=== PATIENT | male | born 1950 | race Caucasian/White ===

== ENCOUNTER → 2017-09-23 | Outpatient (CLI) | payer OTHER | LOC: BHFA 09:00 | PROVIDERS: ATTEND Internal Medicine Cardiovascular Disease | DX: I10 Essential (primary) hypertension (principal); R06.02 Shortness of breath | CPT/HCPCS: 78452; 93017; A9500; J2785 ==

== ENCOUNTER 2017-10-18 08:17 | Inpatient (IN) | payer OTHER ==
--- NOTE | 2017-10-17 07:59 | GHP ---
[f rep st] PREOP HISTORY AND PHYSICAL DATE OF ADMISSION: 10/18/2017 He will be an a.m. admission for surgery on 10/18/2017. PROBLEMS: Left hip arthritis. HISTORY OF PRESENT ILLNESS: The patient is a 67-year-old man admitted for a left total hip arthropla sty. He has had quite a bit of soreness and tightness in the hip for a long time. In the last 6 mon ths, it has been very painful. He has arthritis in his right hip, but it is not particularly painful . He also has degenerative arthritis in his right knee. He has had 3 previous operations on the right knee and has been told that he needs a total knee replacement. His left hip is limiting his activities because of pain. [facility]. He has failed nonsurgical treatment. He is admitted for a left total hip arthroplasty. PAST MEDICAL HISTORY: He is treated for elevated cholesterol and hypertension. He also has glaucoma . He has had a history of kidney stones in the past. No history of heart disease, stents, DVT, hepa titis. He has sleep apnea and uses a CPAP machine. No history of bleeding problems. CURRENT MEDICATIONS: Allopurinol 100 mg per day. Fenofibrate 160 mg per day. Losartan 100 mg per d ay. Lumigan eye drops. Simvastatin. Tamsulosin. Potassium citrate extended-release tablets. He a lso uses trazodone for sleep. DRUG ALLERGIES: None. METAL ALLERGY: None. LATEX ALLERGY: None. SOCIAL HISTORY: The patient is . He does not smoke cigarettes and occasionally drinks alcoho l. 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 FAMILY HISTORY: Positive for breast cancer and depression. PHYSICAL EXAMINATION: Height 6 feet 2 inches. Weight 320 pounds. BMI 41.1. EYES: The conjunctiva e and sclerae are clear. Pupils are round and reactive. MOUTH: Good oral hygiene. No loose teeth. CHEST: Clear. HEART: Regular rhythm. No murmurs. EXTREMITIES: Pertinent findings are limited to his left hip. He has full extension and 90 degrees of flexion. External rotation 20 degrees. In ternal rotation 0 degrees. Abduction 20 degrees. IMPRESSION ON ADMISSION: 1. Bilateral hip degenerative arthritis. The left hip is symptomatic. He is prepared for a left to kendra hip arthroplasty. 2. Right knee degenerative arthritis. 3. Obesity. 4. Treatment for hypertension and elevated cholesterol. 5. Treatment for glaucoma. PLAN: He will undergo a left total hip arthroplasty. The surgery has been described to him, tatianna melo the risks, complications, expectations, and recovery time. I have discussed with him the risk of dislocation, leg length inequality, infection, and sciatic nerve injury. He understands that he is r elatively young for a total hip replacement and might need revision surgery in the future. He also u nderstands that his weight increases his risk of complications. All his questions have been answered , and he consents to surgery. IMAGING: His films show advanced degenerative arthritis of his left hip. He is bone on bone. He al so has significant degenerative arthritis in the right hip. /[id number]/MODL
[~2017-10-18 08:17] MED LIST: POVIDONE-IODINE 20 ML in SODIUM CL IRRIG SOLUTION 500 ML IRR ONE; ROPIVACAINE 0.2% 80 MG, EPINEPHrine 0.2 MG, KETOROLAC TROMETHAMINE 30 MG in SYRINGE 0 ML IU ONE; ceFAZolin 1 GM/5 ML SYR ONE
[2017-10-18] MEDS ORDERED: ACETAMINOPHEN 325 MG TAB PO ONE (08:31)
[2017-10-18] MEDS ORDERED: FAMOTIDINE 20 MG TAB PO ONE (08:31)
[2017-10-18] MEDS ORDERED: ceFAZolin 2 GM/SWFI 2 GM/20 ML SYR IVP ONE (08:31)
[2017-10-18] MEDS ORDERED: DEXAMETHASONE 4 MG/ML VIAL IVP ONE (08:31)
[2017-10-18] MEDS ORDERED: LIDOCAINE 1% 2 ML INJ ONE (08:41)
[2017-10-18] MEDS ORDERED: LR 1,000 ML IV ONE (08:57)
[2017-10-18] MEDS ORDERED: LIDOCAINE 1% 2 ML INJ ID PRN (08:57)
[2017-10-18] MEDS ORDERED: NS IV ONE (09:00)
[2017-10-18] MEDS ORDERED: ROPIVACAINE 0.2% 80 MG, EPINEPHrine 0.2 MG, KETOROLAC TROMETHAMINE 30 MG in SYRINGE 0 ML IU ONE (09:00)
[2017-10-18] MEDS ORDERED: TRANEXAMIC ACID IV ONE (09:00)
--- NOTE | 2017-10-18 09:13 | PDHPUP ---
History & Physical Update H&P update statement: This history and physical update is based on an assessment of the patient which was completed after admission or registration (within 24 hours), but prior to the surgery/procedure. H&P update: H&P reviewed & patient examined, no change in patient's condition since H&P completed
[2017-10-18] MEDS ORDERED: MIDAZOLAM 2 MG/2 ML VIAL ONE (09:31)
--- NOTE | 2017-10-18 09:31 | PDANEPAE ---
ANE History of Present Illness OA left hip ANE Past Medical History - Cardiovascular History Hx Hypertension: Yes Hx Arrhythmias: No Hx Chest Pain: No Hx Coronary Artery / Peripheral Vascular Disease: No Hx CHF / Valvular Disease: No Hx Palpitations: No - Pulmonary History Hx COPD: No Hx Asthma/Reactive Airway Disease: No Hx Recent Upper Respiratory Infection: No Hx Oxygen in Use at Home: No Hx Sleep Apnea: Yes Sleep Apnea Screening Result - Last Documented: Positive - Neurologic History Hx Cerebrovascular Accident: No Hx Seizures: No Hx Dementia: No - Endocrine History Hx Diabetes: No - Renal History Hx Renal Disorders: Yes Renal History Comment: hx of kidney stones - Liver History Hx Hepatic Disorders: No - Neurological & Psychiatric Hx Hx Neurological and Psychiatric Disorders: No - Cancer History Hx Cancer: No - Congenital Disorder History Hx Congenital Disorders: No - GI History Hx Gastrointestinal Disorders: No - Other Health History Other Health History: Glaucoma, - Chronic Pain History Chronic Pain: No - Surgical History Prior Surgeries: none ANE Review of Systems Review of Systems: - Exercise capacity METS (RN): 4 METS ANE Patient History - Allergies Allergies/Adverse Reactions: No Known Allergies Allergy (Unverified 07/21/16 07:56) - Home Medications Home medications: home medication list seen and reviewed Home Medications: Losartan Potassium [Cozaar 50 mg (*)] 100 mg PO DAILY 07/21/16 [Last Taken 10/17] Simvastatin [Zocor] 40 mg PO DAILY 07/21/16 [Last Taken 10/17/17 19:00] traZODone [traZODONE 50MG (*)] 150 mg PO HS 07/21/16 [Last Taken 10/17/17 19:00] Allopurinol [Allopurinol 100 MG (*)] 100 mg PO DAILY 09/28/17 [Last Taken ] FENOFIBRATE 160 mg PO DAILY 09/28/17 [Last Taken 10/17/17] Potassium Citrate [Urocit-K 10meq (*)] 20 meq PO DAILY 09/28/17 [Last Taken ] Tamsulosin HCl [Flomax 0.4 MG (*)] 0.4 mg PO DAILY 09/28/17 [Last Taken Unknown] - NPO status NPO Since - Liquids (Date): 10/17/17 NPO Since - Liquids (Time): 19:00 NPO Since - Solids (Date): 10/17/17 NPO Since - Solids (Time): 19:00 - Smoking Hx Smoking Status: Never smoked - Family Anes Hx Family Hx Anesthesia Complications: none ANE Labs/Vital Signs - Vital Signs Blood Pressure: 137/90 Heart Rate: 90 Respiratory Rate: 16 O2 Sat (%): 91 Height: 187.96 cm Weight: 145.15 kg ANE Physical Exam - Airway Neck exam: FROM Mallampati Score: Class 2 - Pulmonary Pulmonary: no respiratory distress - Cardiovascular Cardiovascular: regular rate and rhythym - ASA Status ASA Status: III ANE Anesthesia Plan Anesthesia Plan: MAC, spinal
[2017-10-18] MEDS ORDERED: MIDAZOLAM 2 MG/2 ML VIAL IVP ONE (09:32)
[2017-10-18] MEDS ORDERED: LIDOCAINE 2% 5 ML SDV ONE (09:35)
[2017-10-18] MEDS ORDERED: PROPOFOL/EMULSION 500 MG/50 ML BOTTLE IV ONE ×2 (09:35→10:28)
[2017-10-18] MEDS ORDERED: PHENYLEPHRINE HCL 100 MCG/ML SYR ONE (10:15)
[2017-10-18] MEDS ORDERED: NALOXONE HCL 0.4 MG/ML INJ IVP PRN (10:54)
[2017-10-18] MEDS ORDERED: ONDANSETRON 4 MG/2 ML VIAL IVP PRN ×2 (10:54→11:48)
[2017-10-18] MEDS ORDERED: fentaNYL 100 MCG/2 ML INJ IVP PRN (10:54)
[2017-10-18] MEDS ORDERED: HYDROmorphONE/DILAUDID 1 MG/ML INJ IVP PRN (10:54)
--- NOTE | 2017-10-18 11:36 | POSTOPPROG ---
Post Op Note Date of Operation: 10/18/17 Surgeon: Julio Cesar Kamara Wood Drilling Machine Operator: Lukas Castillo/Hussain Gonzalez Anesthesiologist: Dr. Hesham Stratton Anesthesia: IV Sedation, Spinal Post-op Diagnosis: Left hip severe degenerative arthritis Procedure: Left total hip arthroplasty Inf/Abcess present in the surg proc area at time of surgery?: No EBL: 100-500
[2017-10-18] MEDS ORDERED: TEMAZEPAM 15 MG CAP PO PRN (11:48)
[2017-10-18] MEDS ORDERED: METOCLOPRAMIDE 10 MG/2 ML VIAL IVP PRN (11:48)
[2017-10-18] MEDS ORDERED: LACTULOSE 20 GM/30 ML UDCUP PO PRN (11:48)
[2017-10-18] MEDS ORDERED: BISACODYL 10 MG SUPP PR PRN (11:48)
[2017-10-18] MEDS ORDERED: MAGNESIUM HYDROXIDE 30 ML UDCUP PO PRN (11:48)
[2017-10-18] MEDS ORDERED: NS 500 ML IV PRN (11:48)
[2017-10-18] MEDS ORDERED: ONDANSETRON DISINTEGRATING 4 MG TAB PO PRN (11:48)
[2017-10-18] MEDS ORDERED: DIPHENOXYLATE/ATROPINE LOMOTIL 1 TAB PO PRN (11:48)
[2017-10-18] MEDS ORDERED: POLYETHYLENE GLYCOL 3350 17 GM PKT PO PRN (11:48)
[2017-10-18] MEDS ORDERED: traMADol 50 MG TAB PO PRN (11:48)
[2017-10-18] MEDS ORDERED: PROMETHAZINE HCL 25 MG/ML INJ IVP PRN (11:48)
[2017-10-18] MEDS ORDERED: diphenhydrAMINE 25 MG CAP PO PRN (11:48)
[2017-10-18] MEDS ORDERED: KETOROLAC 30 MG/1 ML SDV IVP PRN (11:48)
[2017-10-18] MEDS ORDERED: CYCLOBENZAPRINE 10 MG TAB PO PRN (11:48)
[2017-10-18] MEDS ORDERED: PROMETHAZINE HCL 25 MG SUPPR PR PRN (11:48)
--- NOTE | 2017-10-18 11:53 | POSTANESTH ---
Post Anesthetic Evaluation Cardiovascular Status: Normal, Stable Respiratory Status: Normal, Stable Level of Consciousness/Mental Status: Can Participate in Eval Pain Control: Adequate, Prn Tx Ordered Nausea/Vomiting Control: Adequate, Prn Tx Ordered Complications Possibly Related to Anesthesia: None Noted
[2017-10-18] MEDS ORDERED: LR 1,000 ML IV SCH (12:00)
[2017-10-18] MEDS: TRANEXAMIC ACID 650 MG TAB PO SCH ×2 (13:56→21:09)
[2017-10-18] MEDS: ACETAMINOPHEN 325 MG TAB PO SCH ×3 (13:57→23:31)
--- NOTE | 2017-10-18 14:15 | GOP ---
[f rep st] OPERATIVE REPORT DATE OF OPERATION: 10/18/2017 SURGEON: Julio Cesar Kamara MD DEVULCANIZER OPERATOR: KAREY Nicholson and Hussain Gonzalez CFA ANESTHESIA: Marcaine spinal and IV sedation by Hesham Stratton MD PREOPERATIVE DIAGNOSIS: Left hip severe degenerative arthritis. POSTOPERATIVE DIAGNOSIS: Left hip severe degenerative arthritis. PROCEDURE PERFORMED: Left total hip arthroplasty, ceramic femoral head on highly cross-linked polyet hylene cup liner. FINDINGS: DESCRIPTION OF PROCEDURE: The patient was given 3 g of IV Ancef preoperatively within 60 minutes of surgery. He also received IV tranexamic acid at a dose of 20 mg/kg. He was placed on the operating room table and given spinal anesthesia with Marcaine by Dr. Stratton. He was then placed supine and given IV sedation. A Granados catheter was not used. He wore a DIONE stocking and SCD on the nonoper ative leg. He was rolled to the right lateral decubitus position. The position was secured with the pegboard table attachment. An axillary roll was used, and all pressure points were carefully padded . I was careful to lock his pelvis in a rigid vertical position. Patient positioning was very diffi cult. He has a very large man. Height 6 feet 2 inches. Weight 320 pounds. BMI 41.1. His perineum was isolated with plastic adhesive drapes. The left hip and left lower extremity were prepped with ChloraPrep. They were draped free using sterile sheets, stockinette, and Ioban plastic adhesive drap e. The [employer] Organization time-out was performed to verify the correct surgical side and the [facility] patient identity. The [place] time-out was also performed. I made a 7-8 inch straight oblique posterolateral hip skin incision. His large size required a longe r than normal skin incision. The subcutaneous tissues were sharply divided, and hemostasis was obtai pat using electrocautery. The fascia dorothy was identified and split along the axis of its fibers. I curved posteriorly and proximally, and split the fascia of the gluteus geoffrey and bluntly split the muscle fibers in line with their orientation. The Charnley self-retaining retractor was inserted. H is sciatic nerve was located, partially exposed, and protected throughout the procedure. The externa l rotators and the posterior hip capsule were divided as separate layers at the base of the femoral n odessa, tagged, and reflected posteriorly. A smooth 8-inch Steinmann pin was inserted vertically into t he ilium, superior to the acetabulum. An 8-inch drill bit was inserted vertically into the greater t rochanter and parallel to the first pin. The distance between the two was measured for leg length re ference. His femoral head was dislocated posteriorly. Severe degenerative changes were present on t brianna femoral head. His femoral neck was osteotomized at the appropriate level and inclination. I was careful to preserve all the posterior and anterior capsule. The remnant of his damaged labrum was excised. I prepared the femur first. This allowed me to photographic equipment inspector the amount of natural femoral neck anteversion. This, in turn, allowed me to later determine the correct amount of cup anteversion. He had approxi mately 10-12 degrees of natural femoral neck anteversion. The canal was opened laterally with a box chisel. I used the power starter reamer and then hand broached sequentially up to size 9. I was usi ng the Accolade 2 stem with a high offset. The 9 broach was used as a trial stem. I was careful to lateralize adequately. Appropriate retractors were inserted to expose the acetabulum. The acetabulum was reamed sequentiall y up to 59 mm. I selected a 60 mm Tritanium solid backed hemispherical shell. This was tapped secur bruno into place in the proper degree of inclination anteversion. I used the transverse acetabular lig ament and other acetabular bony landmarks to help me properly orient the cup. Fixation was extremely tight and I did not think supplemental screws were necessary. I inserted a screw-in metal dome hole plug. I performed a series of trial reductions to determine length and stability. I concluded that the siz e 9 stem with high offset with the +2.5 mm neck length with a 36 mm head and a 10 degree lip trial li ner gave me the proper combination of appropriate length and good anterior and posterior stability The 10 degree lip Vladimir X3 highly cross-linked polyethylene liner was inserted and tapped securely into place. I then selected the Vladimir Accolade II stem in size 9 with high offset. This was inser dione, press-fit and was very tight. I did one final trial reduction and confirmed that the +2.5 mm ne ck length with the 36 mm head was the proper combination. I selected the Vladimir Biolox Delta cerami c head with an outside diameter of 36 mm and a neck length of +2.5 mm. The head was tapped securely onto the clean trunnion. The acetabulum was irrigated and cleaned and the hip was reduced one final time. He had excellent anterior and posterior stability and appropriate length. Then, 40 mL of the joint anesthetic cocktail were injected into the deep musculature, and subcutaneou s tissues along the skin edges. The joint was thoroughly irrigated 1 final time with a dilute Betadi ne solution. His sciatic nerve was reinspected and looked unharmed. The external rotators and the posterior hip capsule were repaired in separate layers with #2 FiberWir e sutures through drill holes in the greater trochanter. The fascia dorothy was closed first with a cou ple of interrupted [id number] #2 FiberWire sutures followed by a running #2 barbed Ethicon Strat afix PDO suture. Subcutaneous tissues were closed with a running 0 barbed Ethicon Stratafix Monoderm suture. The skin was closed with a running 3-0 barbed Ethicon Stratafix Monoderm subcuticular sutur e. The skin edges were reapproximated and sealed with Dermabond glue. The wound was covered with a strip of Telfa, and everything was held in place with a piece of clear plastic Tegaderm. A long-leg DIONE stocking and SCD were applied to his left lower extremity. He wore a stocking and SCD on the opposite leg during the procedure. An abduction pillow was placed between his knees. He was awakened from anesthesia and rolled to the supine position on his [facility]. He was taken to PACU in satisfactory condition. There were no recognized intraoperative complications. The estimated blood loss was about 400 mL. The sponge and needle count were correct on 2 occasions. I used a Vladimir Tritanium hemispherical press-fit solid-backed acetabular shell with an outside diam eter of 60 mm. The liner was a Vladimir X3 10-degree lipped liner with an inside diameter of 36 mm. The femoral component was a high offset Accolate II Vladimir stem in a size 9 and press-fit. The femo ral head was a Bliss Biolox Delta ceramic head with a +2.5 mm neck length and a [address] Lukas Castillo and Hussain Gonzalez acted as surgical first assistants. Their assistance was a medical necessity for safe completion of the procedure. /[id number]/MODL
[2017-10-18] MEDS ORDERED: ATORVASTATIN CALCIUM 20 MG TAB PO SCH (18:00)
[2017-10-18] MEDS: oxyCODONE IR 5 MG TAB PO PRN (18:29)
[2017-10-18] MEDS: ceFAZolin 2 GM/DEXTROSE 100 ML IV SCH (18:30)
[2017-10-18] MEDS ORDERED: traZODone 50 MG TAB PO SCH (21:00)
[2017-10-18] MEDS: SENNOSIDES/DOCUSATE SODIUM TAB PO SCH (21:09)
[2017-10-18] MEDS: FAMOTIDINE 20 MG TAB PO SCH (21:09)
[2017-10-18] MEDS: ASPIRIN 325 MG TAB PO SCH (21:09)
[2017-10-19] MEDS: ceFAZolin 2 GM/DEXTROSE 100 ML IV SCH (01:46)
[2017-10-19 05:04] VITALS: RESP 16
[2017-10-19 05:08] LABS: HEMATOCRIT 32.1 % (40.0-51.0); HEMOGLOBIN 11.1 g/dL (13.7-17.5)
[2017-10-19] MEDS: TRANEXAMIC ACID 650 MG TAB PO SCH (05:58)
[2017-10-19] MEDS: ACETAMINOPHEN 325 MG TAB PO SCH ×2 (05:58→11:20)
[2017-10-19 08:01] VITALS: BP 123/79; PULSE 88; TEMP 98.4; O2SAT 92
[2017-10-19] MEDS ORDERED: PNEUMOC 13-VAL CONJ-DIP CRM/PF 0.5 ML SYR IM ONE (08:49)
[2017-10-19] MEDS ORDERED: FLU VACC QS 2017-18 (3YR+)/PF 0.5 ML SYR (FLUARIX QUAD) IM ONE (08:49)
[2017-10-19] MEDS ORDERED: TAMSULOSIN HCL 0.4 MG CAP PO SCH (09:00)
[2017-10-19] MEDS ORDERED: POTASSIUM CITRATE 10 MEQ TAB PO SCH (09:00)
[2017-10-19] MEDS ORDERED: FERROUS SULFATE 140 MG TAB.ER PO SCH (09:00)
[2017-10-19] MEDS ORDERED: ATORVASTATIN CALCIUM 20 MG TAB PO SCH (09:00)
[2017-10-19] MEDS ORDERED: ALLOPURINOL 100 MG TAB PO SCH (09:00)
[2017-10-19] MEDS ORDERED: Fenofibrate [Fenofibrate] 160 MG PO SCH (09:00)
[2017-10-19] MEDS ORDERED: LOSARTAN POTASSIUM 50 MG TAB PO SCH (09:00)
[2017-10-19] MEDS: ASPIRIN 325 MG TAB PO SCH (09:35)
[2017-10-19] MEDS: SENNOSIDES/DOCUSATE SODIUM TAB PO SCH (09:37)
--- NOTE | 2017-10-19 09:40 | SOAPPROG ---
SOAP Progress Note Assessment/Plan: Assessment: Afebrile. Awake and alert. Up and sitting in a chair. He has been walking in the [place] and has been cleared on stairs by physical therapy. His dressing is dry. Sciatic nerve intact. Hemoglobin and hematocrit are satisfactory. Postop films look excellent. Plan: Discharged later today. 10/19/17 09:40 Objective: Vital Signs Temp Pulse Resp BP Pulse Ox 36.9 C 88 16 123/79 H 92 10/19/17 08:00 10/19/17 08:00 10/19/17 08:00 10/19/17 08:00 10/19/17 08:00 Laboratory Results 10/19/17 04:55 10/18/17 10/19/17 10/20/17 05:59 05:59 05:59 Intake Total 2575 Output Total 1100 Balance 1475 ICD10 Worksheet Patient Problems: Problems Problem Status Onset Osteoarthritis of left hip Acute
[2017-10-19] MEDS: FAMOTIDINE 20 MG TAB PO SCH (09:43)
[2017-10-19] MEDS ORDERED: FENOFIBRATE 145 MG TAB PO SCH (09:45)
[2017-10-19] MEDS: oxyCODONE IR 5 MG TAB PO PRN (11:20)
--- NOTE | 2017-10-19 13:54 | ASDISCHSUM ---
Discharge Information Plan Status:Home with No Needs Medically Cleared to Leave: Discharge Date:10/19/2017 01:30 PM CM D/C Disposition:Home, Routine, Self-Care ADT D/C Disposition:Home, Routine, Self-Care Projected Discharge Date:10/19/2017 01:30 PM Transportation at D/C: Discharge Delay Reason: Follow-Up Date:10/19/2017 01:30 PM Discharge Slot: Final Diagnosis: Placement Information Patient Contact Information Contact Name:KARMA Relationship: Address:[address] Work Phone: City:[place] Alternate Phone: [facility]/Zip Code:[place] [address] Email: Financial Information Financial Class: Primary Plan Desc:MEDICARE INPATIENT Primary Plan Number:[id number] Secondary Plan Desc:ANDI Secondary Plan Number:[id number] Assessment Information [facility] CM Progress Note CM Note CM Note Notes: PT rec HHC and 24 hour supervision, pt reports he will have 24 hour supervision between friends and family. Pt reports his surgeon specifically communicated to him a preference for no HHC and pt already has outpatient therapy scheduled next week per surgeon recommendation. No CM d/c needs identified. Date Signed: 10/19/2017 01:52 PM Electronically Signed By:SIM Vela Intervention Information
--- NOTE | 2017-10-19 19:36 | GDS ---
[f rep st] DISCHARGE SUMMARY ADMISSION DIAGNOSIS: Left hip severe degenerative arthritis. DISCHARGE DIAGNOSIS: Left hip severe degenerative arthritis. OPERATION PERFORMED: 10/18/2017, a left total hip arthroplasty. POSTOPERATIVE COMPLICATIONS: None. CONDITION ON DISCHARGE: Improved. DESCRIPTION OF HOSPITAL COURSE: The patient was admitted to the hospital on the morning of surgery. His admission hemoglobin and hematocrit were 13.5 and 38.3. Platelet count 338,000. BUN and creati nine were 21 and 0.9. The same day, under a combination of Marcaine, spinal, and IV sedation, he und erwent a left total hip arthroplasty. Postoperatively, he was treated with multimodal DVT prophylaxi s, including aspirin and early mobilization. On the first postoperative day, his hemoglobin and charla tocrit were 11.1 and 32.1. He was seen by Physical Therapy and made good progress with ambulation an d stairs. By the time of discharge, he was afebrile and was independent walking with a walker. He w ill be 50% weightbearing on the left for 3 weeks. This is due to his size. DISPOSITION: The patient discharged to his home. He will go to outpatient physical therapy at [facility] next week. He will be 50% weightbearing on the left for 3 weeks. Use DIONE stockings for 1 week. Continue 1 adult size aspirin daily for 21 days. I will see him back in the office on 11/10/2017. If any problems, he is to call me at the office. /[id number]/MODL
== END 2017-10-19 13:30 | disposition home or self-care (01) | DRG 470 ==
LOC: F3N 08:17
PROVIDERS: ADMIT Orthopaedic Surgery; ATTEND Orthopaedic Surgery
PROC: 0SRB04Z Replacement of Left Hip Joint with Ceramic on Polyethylene Synthetic Substitute, Open Approach (ICD-10-PCS; principal; 2017-10-18 09:45)
DX: M16.12 Unilateral primary osteoarthritis, left hip (principal); M17.11 Unilateral primary osteoarthritis, right knee; E78.00 Pure hypercholesterolemia, unspecified; I10 Essential (primary) hypertension; E66.9 Obesity, unspecified; Z23 Encounter for immunization
CPT/HCPCS: 97110-GP; 97116-GP; 97161-GP; 97165-GO; 97530-GP; G0008; G0009; G8978-GP-CI; G8978-GP-CJ; G8979-GP-CI; G8980-GP-CI; G8987-GO-CI; G8988-GO-CI; G8989-GO-CI; J0171; J0690; J1100; J1885; J2250; J2370; J2704; J2795

== ENCOUNTER 2019-01-23 08:11 | Observation (INO) | payer OTHER ==
--- NOTE | 2019-01-08 11:09 | GHP ---
[f rep st] PREOP HISTORY AND PHYSICAL PREOPERATIVE ADMISSION HISTORY AND PHYSICAL: He will be an AM admission for surgery at [facility] on January 23, 2019. PROBLEM: Right knee severe degenerative arthritis. HISTORY OF PRESENT ILLNESS: The patient is a 68-year-old man admitted for a right total knee arthrop lasty. He has had known severe degenerative arthritis in his right knee for over 5 years. It has be en gradually getting worse. It is very painful. He has daily pain. It is painful to walk 1 block. He has failed nonsurgical treatment. He is admitted for a right total knee arthroplasty. PAST MEDICAL HISTORY: I did his left total hip arthroplasty 15 months ago. He has an excellent resu lt. He is also treated for elevated cholesterol, high blood pressure, kidney stones and glaucoma. CURRENT MEDICATIONS: 1. Allopurinol 100 mg per day. 2. Fenofibrate 160 mg per day. 3. Losartan 100 mg per day. 4. Lumigan eye drops for glaucoma. 5. Metformin 500 mg per day. 6. Potassium citrate. 7. Simvastatin 40 mg per day. 8. Tamsulosin 0.4 mg per day. DRUG ALLERGIES: None. METAL ALLERGY: None. LATEX ALLERGY: None. SOCIAL HISTORY: The patient is . He does not smoke cigarettes and occasionally drinks alcoho l. 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 FAMILY HISTORY: Positive for breast cancer and depression. PHYSICAL EXAMINATION: VITAL SIGNS: Height 6 feet 2 inches, weight 320 pounds, BMI 40.1. EYES: Con junctivae and sclerae are clear. Pupils are round and reactive. MOUTH: Good oral hygiene. No loos e teeth. CHEST: Clear. HEART: Regular rhythm. No murmurs. EXTREMITIES: Pertinent findings limi chel to his right knee. He has a large bulky leg. He lacks 10 degrees of full extension and flexes t o 105 degrees. His collateral ligaments are stable. IMAGING: His films show very severe degenerative arthritis of the right knee. He is bone on bone in the medial compartment. his medial tibial plateau. Marked varus alignment. IMPRESSION ON ADMISSION: 1. Right knee severe degenerative arthritis with varus deformity. 2. Fifteen months status post successful left total hip arthroplasty. 3. Treatment for elevated cholesterol. 4. Treatment for hypertension. 5. Treatment for kidney stones. 6. Treatment for glaucoma. 7. Obesity. 8. Prostate enlargement. PLAN: He will undergo a right total knee arthroplasty. The surgery has been described to him, inclu ding the risks, complications, expectations and recovery time. I have stressed the importance of pos toperative physical therapy. Advised him that 10% to 15% of patients do not get a satisfactory resul t with a total knee replacement. The importance of postoperative physical therapy has been discussed with him. All his questions have been answered, and he consents to surgery. /[id number]/MODL
[~2019-01-23 08:11] MED LIST changes: +TRANEXAMIC ACID 2,000 MG in NS 100 ML IV ONE; +TRANEXAMIC ACID 3,000 MG in NS (SYRINGE) 50 ML IRR ONE; -ceFAZolin 1 GM/5 ML SYR ONE; +ceFAZolin 3 GM in D5W 100 ML IV ONE
[2019-01-23] MEDS ORDERED: DEXAMETHASONE 4 MG/ML VIAL IVP ONE (08:25)
[2019-01-23] MEDS ORDERED: ACETAMINOPHEN 325 MG TAB PO ONE (08:25)
[2019-01-23] MEDS ORDERED: ONDANSETRON 4 MG/2 ML VIAL IVP ONE (08:25)
[2019-01-23] MEDS ORDERED: GABAPENTIN 300 MG CAP PO ONE (08:25)
[2019-01-23] MEDS ORDERED: FAMOTIDINE 20 MG TAB PO ONE (08:25)
[2019-01-23] MEDS ORDERED: LR 1,000 ML IV ONE (08:29)
[2019-01-23] MEDS ORDERED: VANCOMYCIN 1 GM VIAL ONE (08:34)
[2019-01-23] MEDS ORDERED: TRANEXAMIC ACID 3,000 MG/50 ML BAG IRR ONE (08:34)
[2019-01-23] MEDS ORDERED: ceFAZolin 1 GM/5 ML SYR ONE (08:34)
[2019-01-23] MEDS ORDERED: MIDAZOLAM 2 MG/2 ML VIAL IVP ONE (09:06)
--- NOTE | 2019-01-23 09:11 | PDANEPAE ---
ANE History of Present Illness right knee pain ANE Past Medical History - Cardiovascular History Hx Hypertension: Yes Hx Arrhythmias: No Hx Chest Pain: No Hx Coronary Artery / Peripheral Vascular Disease: No Hx CHF / Valvular Disease: No Hx Palpitations: No - Pulmonary History Hx COPD: No Hx Asthma/Reactive Airway Disease: No Hx Recent Upper Respiratory Infection: No Hx Oxygen in Use at Home: No Hx Sleep Apnea: Yes Sleep Apnea Screening Result - Last Documented: Positive Pulmonary History Comment: HENOK uses CPAP - Neurologic History Hx Cerebrovascular Accident: No Hx Seizures: No Hx Dementia: No - Endocrine History Hx Diabetes: Yes Hypothyroid: No Hyperthyroid: No Obesity: severe Endocrine History Comment: NIDDM - Renal History Hx Renal Disorders: No Renal History Comment: hx of kidney stones - Liver History Hx Hepatic Disorders: No - Neurological & Psychiatric Hx Hx Neurological and Psychiatric Disorders: No - Cancer History Hx Cancer: No - Congenital Disorder History Hx Congenital Disorders: No - GI History GERD: no Hx Gastrointestinal Disorders: No - Other Health History Other Health History: Glaucoma, - Chronic Pain History Chronic Pain: No - Surgical History Prior Surgeries: 2017 L TERRY ANE Review of Systems Review of systems is: negative Review of Systems: - Exercise capacity Exercise capacity: >=4 METS METS (RN): 4 METS ANE Patient History - Allergies Allergies/Adverse Reactions: No Known Allergies Allergy (Unverified 01/04/19 11:08) - Home Medications Home medications: home medication list seen and reviewed Home Medications: Losartan Potassium [Cozaar 50 mg (*)] 07/21/16 [Last Taken 2 Days Ago ~01/21/19 ] Simvastatin [Zocor] 07/21/16 [Last Taken 2 Days Ago ~01/21/19] traZODone [traZODONE 50MG (*)] 07/21/16 [Last Taken 01/22/19] Allopurinol [Allopurinol 100 MG (*)] 09/28/17 [Last Taken 2 Days Ago ~01/21/19] FENOFIBRATE 09/28/17 [Last Taken 2 Days Ago ~01/21/19] Potassium Citrate [Urocit-K 10meq (*)] 09/28/17 [Last Taken 01/22/19] Tamsulosin HCl [Flomax 0.4 MG (*)] 09/28/17 [Last Taken 2 Days Ago ~01/21/19] Metformin HCl 01/04/19 [Last Taken 01/20/19] - NPO status NPO Status: no food or drink >8 hours NPO Since - Liquids (Date): 01/23/19 NPO Since - Liquids (Time): 03:00 NPO Since - Solids (Date): 01/22/19 NPO Since - Solids (Time): 18:00 - Anes Hx Anes Hx: no prior problems - Smoking Hx Smoking Status: Never smoked - Family Anes Hx Family Hx Anesthesia Complications: none ANE Labs/Vital Signs - Vital Signs Vital Signs: reviewed preoperatively; see RN documention for details Blood Pressure: 141/86 Heart Rate: 84 Respiratory Rate: 14 O2 Sat (%): 93 Height: 187.96 cm Weight: 145.15 kg ANE Physical Exam - Airway Neck exam: FROM Mallampati Score: Class 2 Mouth exam: normal dental/mouth exam (large neck) - Pulmonary Pulmonary: no respiratory distress - Cardiovascular Cardiovascular: regular rate and rhythym - ASA Status ASA Status: III ANE Anesthesia Plan Anesthesia Plan: spinal Regional Anesthesia: continuous NB, adductor canal FNB
[2019-01-23] MEDS ORDERED: PROPOFOL/EMULSION 500 MG/50 ML BOTTLE IV ONE ×2 (09:23)
[2019-01-23] MEDS ORDERED: ROPIVACAINE HCL 150 MG/30 ML INJ ONE (09:27)
--- NOTE | 2019-01-23 10:07 | PDHPUP ---
History & Physical Update H&P update statement: This history and physical update is based on an assessment of the patient which was completed after admission or registration (within 24 hours), but prior to the surgery/procedure. H&P update: H&P reviewed & patient examined
[2019-01-23] MEDS ORDERED: PHENYLEPHRINE HCL 100 MCG/ML SYR IVP PRN (11:30)
[2019-01-23] MEDS ORDERED: oxyCODONE IR 5 MG TAB PO PRN ×2 (11:30→13:20)
[2019-01-23] MEDS ORDERED: ONDANSETRON 4 MG/2 ML VIAL IVP PRN ×2 (11:30→13:20)
[2019-01-23] MEDS ORDERED: METOCLOPRAMIDE 10 MG/2 ML VIAL IVP PRN ×2 (11:30→13:20)
[2019-01-23] MEDS ORDERED: PROMETHAZINE HCL 25 MG/ML INJ IVP PRN ×2 (11:30→13:20)
[2019-01-23] MEDS ORDERED: fentaNYL 100 MCG/2 ML INJ IVP PRN (11:30)
[2019-01-23] MEDS ORDERED: ACETAMINOPHEN 500 MG TAB PO PRN (11:30)
[2019-01-23] MEDS ORDERED: DEXAMETHASONE 4 MG/ML VIAL IVP PRN (11:30)
[2019-01-23] MEDS ORDERED: NALOXONE HCL 0.4 MG/ML INJ IVP PRN (11:30)
[2019-01-23] MEDS ORDERED: MEPERIDINE 25 MG/0.5 ML AMP IVP PRN (11:30)
[2019-01-23] MEDS ORDERED: HYDROmorphONE/DILAUDID 2 MG/ML INJ IVP PRN (11:30)
[2019-01-23] MEDS ORDERED: LABETALOL HCL 5 MG/ML 20 ML MDV IVP PRN (11:30)
[2019-01-23] MEDS ORDERED: LR 500 ML IV PRN (11:30)
[2019-01-23] MEDS ORDERED: ALBUTEROL 3 ML DEYVIAL IH PRN (11:30)
[2019-01-23] MEDS ORDERED: PROPOFOL 200 MG/20 ML VIAL ONE ×4 (11:36→12:54)
[2019-01-23] MEDS ORDERED: BUPIVACAINE/DEXTROSE 7.5MG/ML 2 ML SPINAL AMP SP ONE (11:37)
--- NOTE | 2019-01-23 13:14 | POSTOPPROG ---
Post Op Note Date of Operation: 01/23/19 Surgeon: Julio Cesar Kamara Longwall Shearer Operator: Desirae Anesthesiologist: Raiza Anesthesia: IV Sedation, Spinal Post-op Diagnosis: Right right knee very severe degenerative arthritis. Procedure: Right total knee arthroplasty Inf/Abcess present in the surg proc area at time of surgery?: No EBL: 50-100 (Adductor canal block with indwelling catheter in PACU.)
[2019-01-23] MEDS ORDERED: CYCLOBENZAPRINE 10 MG TAB PO PRN (13:20)
[2019-01-23] MEDS ORDERED: NS 500 ML IV PRN (13:20)
[2019-01-23] MEDS ORDERED: MAGNESIUM HYDROXIDE 30 ML UDCUP PO PRN (13:20)
[2019-01-23] MEDS ORDERED: ONDANSETRON DISINTEGRATING 4 MG TAB PO PRN (13:20)
[2019-01-23] MEDS ORDERED: traMADol 50 MG TAB PO PRN (13:20)
[2019-01-23] MEDS ORDERED: DIPHENOXYLATE/ATROPINE LOMOTIL 1 TAB PO PRN (13:20)
[2019-01-23] MEDS ORDERED: BISACODYL 10 MG SUPP PR PRN (13:20)
[2019-01-23] MEDS ORDERED: POLYETHYLENE GLYCOL 3350 17 GM PKT PO PRN (13:20)
[2019-01-23] MEDS ORDERED: TEMAZEPAM 15 MG CAP PO PRN (13:20)
[2019-01-23] MEDS ORDERED: diphenhydrAMINE 25 MG CAP PO PRN (13:20)
[2019-01-23] MEDS ORDERED: LACTULOSE 20 GM/30 ML UDCUP PO PRN (13:20)
[2019-01-23] MEDS ORDERED: PROMETHAZINE HCL 25 MG SUPPR PR PRN (13:20)
[2019-01-23] MEDS ORDERED: LR 1,000 ML IV SCH (13:30)
[2019-01-23] MEDS ORDERED: fentaNYL 100 MCG/2 ML INJ ONE (13:54)
--- NOTE | 2019-01-23 14:08 | GOP ---
[f rep st] OPERATIVE REPORT DATE OF OPERATION: 01/23/2019 SURGEON: Julio Cesar Kamara MD MERCHANDISE HANDLER: Salvatore Castillo, PAC and Hussain Gonzalez CFA ANESTHESIA: A combination of Marcaine spinal, IV sedation, and adductor canal block. ANESTHESIOLOGIST: Dr. Eastman. PREOPERATIVE DIAGNOSIS: Right knee severe degenerative arthritis with varus deformity. POSTOPERATIVE DIAGNOSIS: Right knee severe degenerative arthritis with varus deformity. PROCEDURE PERFORMED: Right total knee arthroplasty, cemented. posterior stabilized, Carballo and Nephe w Journey II FINDINGS: DESCRIPTION OF PROCEDURE: The patient was given 3 g of IV Ancef preoperatively within 60 minutes of surgery. He also received 2000 mg of IV tranexamic acid preoperatively. He was placed on the operat ing room table and given spinal anesthesia with Marcaine by Dr. Eastman. He was then placed supine and given IV sedation. A Grnaados catheter was not used. He wore a DIONE stocking and SCD on the nonoper ative leg. A double bolster was placed under the right hip to prevent excessive external rotation of the leg. His right lower extremity was prepped with ChloraPrep from the upper thigh tourniquet to t he tips of the toes. It was draped free using sterile sheets, stockinette, and Ioban plastic adhesiv e drape. His lower leg was wrapped with compressive Coban. The leg was exsanguinated with elevation and a 6-inch compressive wrap, and the pneumatic tourniquet was inflated to 300 mmHg. The [employer] time-out was performed to verify the correct patient identity and the c orrect surgical side and site. The [place] time-out was also performed. The DeMayo leg holding device was sterilely attached in the operating room and used throughout the [facility] car[facility] region to help position the knee. He had approximately 15 degree flexion contracture preoperatively , as well as severe varus deformity. A straight midline incision made centered on the patella. He h ad a moderate amount of scarring on the anterior aspect of the knee from previous surgery and from tr auma. I was careful to make my midline incision in such a way that there were adequate skin bridges between the current incision and his previous incisions. The previous scars were very old. A medial subcutaneous flap was developed, and the capsule and synovium were opened in a medial parapatellar f ashion. Very extensive degenerative changes were present. He was eroded down to bone on bone in the patellofemoral joint. He had an erosion on the medial tibial plateau. The medial capsule and perio steum were elevated off the rim of the medial tibial plateau all the way around to the posteromedial corner. I had to do an extensive release of his medial collateral ligament off the tibia because of the severe preoperative varus deformity. He had very extensive osteophyte formation in all 3 compartments. I had to spend quite a bit of time just removing all the osteophytes to reestablish his normal anatomy. It was difficult to sublux and expose his patella. The original thickness of the patella was measured. Very large peripheral oste ophytes were removed. I cut a flat surface on the back of the patella. He was sized for a 41 mm rou nd resurfacing component. I removed enough bone from the patella,, such that the remaining bone, plu s the thickness of the patellar component recreated the original thickness of the patella. The compo site thickness was 30 mm. The intramedullary alignment guide system was used to set up the distal femoral cut. The distal femu r was cut in 6 degrees of valgus. Because of the flexion contracture, I made a +2 mm cut on the dist al femur. The sizing jig was used to determine proper femoral sizing. I shifted the jig anteriorly 1 mm in order to accommodate a size 10 femoral component without notching the anterior cortex. The 5 -in-1 cutting block was applied and the anterior and posterior condylar cuts and chamfer cuts were ma de. The final jig was used to remove the central portion of the distal femur to accommodate the post erior stabilized femoral component. I was careful to determine proper rotation by referencing off [place]'s line and other bony landmarks. The femur was sized for a size 10 posterior stabilized comp onent. Next, the tibia was prepared. The proximal tibial cut was made using the extramedullary alignment gu lalitha system. I made a minimal cut on the medial side because of the erosion. The cut was made in a f ew degrees of posterior slope. I was careful to achieve proper varus-valgus alignment. I checked my gaps and it was necessary to cut an additional 2 mm off the proximal tibia. The posterior compartme nt was cleared of meniscal remnants. He had 2 very large loose bodies in the posterior aspect of his medial compartment and 3 very large loose bodies in the posterior aspect of his lateral compartment. Osteophytes were removed from the back of his femoral condyles. I checked the flexion and extensio n gaps, and he was still tight medially. I had to do some additional release of the medial collatera l ligament, including some mild perforation of the ligament. His tibia was sized for an 8 component. With the trial components in place, I selected the 12 mm polyethylene posterior stabilized tibial i nsert. The knee came to full extension and flexed to 120 degrees. In spite of the extensive medial release, he still had about 2 mm of lateral laxity in flexion and extension. I chose to use the semi -constrained tibial insert. The trial patellar button was applied, and patellar tracking was checked . Tracking was excellent without any digital pressure. 40 cc of the joint anesthetic cocktail were injected into the posterior capsule, the quadriceps muscl e and tendon areas, and the subcutaneous tissues along the skin edges. Because he was a very large m an, weight 319 pounds, I chose to use a short cemented stem on the tibial base plate. The canal was reamed up to 20 mm. The 20 mm x 100 mm stem was attached to the tibial base plate and tapped securel y into place. The surfaces were prepared for cementing. They were carefully cleaned with the pulsating lavage irri gation and thoroughly dried. The CarboJet device used to blow dry the cancellous surfaces. A double batch of high viscosity methylmethacrylate cement with 2 g of powdered vancomycin added was mixed. While it was still in a doughy state, all [address] components were cemented in place. I inserted a plastic distal cement restrictor prior to cementing the tibial base plate. I did cement the stem. The 12 mm trial tibial insert was re-tried and was the proper thickness. The 12 mm Journey II constr ained articular polyethylene insert was inserted and locked into place. The knee was thoroughly irri gated 1 final time with a dilute Betadine solution. He was stable in full extension and 90 degrees o f flexion. The tourniquet was deflated. Total tourniquet time was 1 hour, 41 minute. 50 mL of tranexamic acid were irrigated into the wound. The vastus medialis portion of the extensor mechanism was repaired with several interrupted figure-of -eight #2 FiberWire sutures. The capsule and synovium were closed first with multiple interrupted fi [id number] 0 PDS sutures, followed by a running #2 barbed Ethicon Stratafix PDO suture. Subcutane ous tissues were closed with a running 0 barbed Ethicon Stratafix Monoderm suture. The skin was clos ed with a running 3-0 barbed Ethicon Stratafix Monoderm subcuticular suture. The skin was closed wit h half-inch Steri-Strips. The wound was covered with a large Mepilex waterproof dressing. A long-le g DIONE stocking was applied, followed by the 6 inch compressive device. An SCD was applied and along with the cooling device. The patient wore a stocking and SCD on the opposite leg during the procedur e. The sacral Mepilex dressing was applied. I used a size 10 Carballo and Nephew cemented Oxinium posterior stabilized femoral component, a size 8 c emented tibial base plate, with a 20 mm x 100 mm stem, a 12 mm posterior stabilized constrained polye thylene insert, and a 41 mm cemented round all-polyethylene resurfacing patellar component. The estimated blood loss following deflation of the tourniquet was about 100 mL. Sponge and needle count were correct on 2 occasions. He was awakened from anesthesia, transferred to his hospital [facility] and taken to PACU in satisfactory condition. There were no recognized intraoperative complications. In the PACU, for additional post operative pain control, Dr. Eastman performed an adductor canal block with an indwelling catheter. The procedure was lengthy and difficult because of his size and because of the severity of his arthri tic change. Salvatore Castillo and Hussain Gonzalez acted as surgical assistants. Their assistance was a medical necessity. /[id number]/MODL
[2019-01-23] MEDS: KETOROLAC 15 MG/1 ML SDV IVP SCH (17:06)
[2019-01-23] MEDS: ACETAMINOPHEN 325 MG TAB PO SCH (18:03)
[2019-01-23] MEDS: ceFAZolin 2 GM/DEXTROSE 100 ML IV SCH (18:04)
[2019-01-23] MEDS: ASPIRIN 325 MG TAB PO SCH (20:22)
[2019-01-23] MEDS: FAMOTIDINE 20 MG TAB PO SCH (20:23)
[2019-01-23] MEDS: SENNOSIDES/DOCUSATE SODIUM TAB PO SCH (20:23)
[2019-01-24] MEDS: KETOROLAC 15 MG/1 ML SDV IVP SCH ×3 (00:39→11:14)
[2019-01-24] MEDS: ACETAMINOPHEN 325 MG TAB PO SCH ×2 (00:40→06:14)
[2019-01-24] MEDS: ceFAZolin 2 GM/DEXTROSE 100 ML IV SCH (03:26)
[2019-01-24] MEDS ORDERED: ROPIVACAINE HCL 150 MG/30 ML INJ ONE (07:27)
[2019-01-24] MEDS ORDERED: LIPID EMULSION 20% 100 ML IV PRN (07:39)
[2019-01-24] MEDS: FAMOTIDINE 20 MG TAB PO SCH (08:32)
[2019-01-24] MEDS: ASPIRIN 325 MG TAB PO SCH (08:32)
[2019-01-24] MEDS: SENNOSIDES/DOCUSATE SODIUM TAB PO SCH (08:32)
[2019-01-24] MEDS ORDERED: metFORMIN SR 500 MG TAB PO SCH (09:00)
[2019-01-24] MEDS ORDERED: ALLOPURINOL 100 MG TAB PO SCH (09:00)
[2019-01-24] MEDS ORDERED: POTASSIUM CITRATE 10 MEQ TAB PO SCH (09:00)
[2019-01-24] MEDS ORDERED: PRAVASTATIN SODIUM 40 MG TAB PO SCH (09:00)
--- NOTE | 2019-01-24 09:26 | SOAPPROG ---
SOAP Progress Note Assessment/Plan: Assessment: AFEBRILE. AWAKE AND ALERT. MILD PAIN so far. He has been up and walking in the room. Postop H&H are good. Postop films look excellent. He is voiding spontaneously. Plan: Continue physical therapy today for walking and stairs. Standing long-leg alignment film today. Discharge later today. 01/24/19 09:25 Objective: Vital Signs Temp Pulse Resp BP Pulse Ox 36.6 C 69 16 126/75 H 90 L 01/24/19 07:38 01/24/19 09:00 01/24/19 09:00 01/24/19 09:00 01/24/19 09:00 Laboratory Results 01/24/19 04:22 01/23/19 01/24/19 01/25/19 05:59 05:59 05:59 Intake Total 3425 Output Total 375 Balance 3050 ICD10 Worksheet Patient Problems: Problems Problem Status Onset Osteoarthritis of right knee Acute Osteoarthritis of left hip Acute
[2019-01-24] MEDS ORDERED: LOSARTAN POTASSIUM 50 MG TAB PO SCH (09:30)
[2019-01-24] MEDS ORDERED: FENOFIBRATE 145 MG TAB PO SCH (09:30)
--- NOTE | 2019-01-24 09:34 | PDPAINCON ---
Pain Management Consultation Patient referred by : Asad - Subjective Pain at rest (/10): 0 Pain with activity (/10): 0 Pain is: no pain at all Side effects include: No drowsy, No itchiness, No nausea Activity: out of bed with assistance - Objective Technique: continuous peripheral nerve block Site: femoral Continuous infusion: ropivicaine Catheter site: clean, dry, intact, no erythema/edema/exudate Sensory and motor exam: consistent with block Vital signs: stable - Assessment/Plan Assessment/Plan: pain well-controlled, continue current mgmt, other Additional comments: Pt seen and examined. Catheter bolused with ropi 0.5% 30 ml, removed, tip intact, atraumatic.
--- NOTE | 2019-01-24 10:08 | GDS ---
[f rep st] DISCHARGE SUMMARY ADMISSION DIAGNOSIS: Right knee severe degenerative arthritis. DISCHARGE DIAGNOSIS: Right knee severe degenerative arthritis. OPERATION PERFORMED: 01/23/2019, right total knee arthroplasty. POSTOPERATIVE COMPLICATIONS: None. CONDITION ON DISCHARGE: Improved. DESCRIPTION OF HOSPITAL COURSE: The patient was admitted to the hospital on the morning of surgery. His admission white blood cell count was 6530. H and H 13.5 and 40.0. Electrolytes, BUN and creati nine were normal. The same day, under a combination of Marcaine, spinal, IV sedation, and adductor c anal block, he underwent a right total knee arthroplasty. Postoperatively, he was treated with multi modal DVT prophylaxis, including aspirin. He was able to void spontaneously. On the 1st postoperati ve day, his hemoglobin and hematocrit were 11.0 and 32.7. He was seen by Physical Therapy and made g ood progress with ambulation and stairs. By the time of discharge, he was afebrile, his wound was cl shanna and dry, and he was independent in walking. DISPOSITION: The patient was discharged to his home. I will see him back in the office on February 08, 2019. Continue DIONE stockings for 1 week. Continue aspirin 325 mg p.o. daily for 21 days. He has p rescriptions for Celebrex, oxycodone, and tramadol for pain control. He will go to outpatient physic al therapy. I will see him back in the office on February 08, 2019. If there are any problems, he is t o call me at the office. /[id number]/MODL
[2019-01-24 12:05] VITALS: BP 132/77
--- NOTE | 2019-01-24 12:06 | ASMTLACE ---
LACE Length of stay for Answers: 2 days current admission Acuity / Level of Answers: No Care: Did the patient have an inpatient admission? Comorbidities - select Answers: Diabetes (uncontrolled or all that apply controlled) Other Notes: HTN # of Emergency department Answers: 0 visits in the last 6 months Score: 4 Date Signed: 01/24/2019 12:05 PM Electronically Signed By:SIM Vela
--- NOTE | 2019-01-24 12:07 | ASMTCMCOM ---
CM Note CM Note Notes: Pt had planned knee surgery, resides with . PT rec home/outpatient, MD rec outpatient. No CM d/c needs identified. Date Signed: 01/24/2019 12:06 PM Electronically Signed By:SIM Vela
[2019-01-24] MEDS ORDERED: TAMSULOSIN HCL 0.4 MG CAP PO SCH (21:00)
[2019-01-24] MEDS ORDERED: BIMATOPROST 0.01% 2.5 ML OPHT.BTL EACHEYE SCH (21:00)
[2019-01-24] MEDS ORDERED: traZODone 50 MG TAB PO SCH (21:00)
== END 2019-01-24 13:15 | disposition home or self-care (01) ==
LOC: F3N 08:11
PROVIDERS: ADMIT Orthopaedic Surgery; ATTEND Orthopaedic Surgery
DX: M17.11 Unilateral primary osteoarthritis, right knee (principal); Z96.642 Presence of left artificial hip joint; E78.00 Pure hypercholesterolemia, unspecified; I10 Essential (primary) hypertension; H40.9 Unspecified glaucoma; E66.09 Other obesity due to excess calories; G47.33 Obstructive sleep apnea (adult) (pediatric); E11.9 Type 2 diabetes mellitus without complications
CPT/HCPCS: 27447; 64448; 73560; 77073; 88311; 97116; 97161; 97165; C1713; C1776; J0171; J0690; J1100; J1885; J2250; J2405; J2704; J2795; J3010; J3370